=== PATIENT | female | born 1965 | race Caucasian/White ===

== ENCOUNTER 2016-04-15 09:51 | Outpatient (RCR) | payer MEDICAID, OTHER ==
[~2016-04-15 09:51] MED LIST: BIRTH CONTROL PILL; CITA40TA11 PO; NF-ESOM40C PO; PANT40TA2 PO; SUCR1ORA5 PO; SUCR1TAB36 PO
[2016-04-15 10:36] LABS: BASOPHILS % (AUTO) 0 % (0-10); EOSINOPHILS # (AUTO) 0.1 10^3/uL (0.0-0.3); EOSINOPHILS % (AUTO) 2 % (0-10); LYMPHOCYTES # (AUTO) 2.4 X 10^3 (1.0-4.0); LYMPHOCYTES % (AUTO) 36 % (12-44); MEAN CORPUSCULAR HEMOGLOBIN 31 PG (25-34); MEAN CORPUSCULAR HGB CONC 34 G/DL (32-36); MEAN CORPUSCULAR VOLUME 91 FL (80-99); MONOCYTES % (AUTO) 14 % (0-12); NEUTROPHILS # (AUTO) 3.2 X 10^3 (1.8-7.8); NEUTROPHILS % (AUTO) 48 % (42-75); PLATELET COUNT 206 10^3/uL (130-400); RED BLOOD COUNT 5.15 10^6/uL (4.35-5.85); RED CELL DISTRIBUTION WIDTH 13.4 % (10.0-14.5); WHITE BLOOD COUNT 6.7 10^3/uL (4.3-11.0)
[2016-04-15 11:07] LABS: ALANINE AMINOTRANSFERASE 28 U/L (0-55); ALBUMIN 3.7 G/DL (3.2-4.5); ANION GAP 9 MMOL/L (5-14); ASPARTATE AMINO TRANSFERASE 17 U/L (5-34); BILIRUBIN,TOTAL 0.5 MG/DL (0.1-1.0); BLOOD UREA NITROGEN 13 MG/DL (7-18); BUN/CREATININE RATIO 14; CALCIUM 8.9 MG/DL (8.5-10.1); CARBON DIOXIDE 26 MMOL/L (21-32); CHLORIDE 107 MMOL/L (98-107); CREATININE SERUM 0.95 MG/DL (0.60-1.30); GFR ESTIMATED > 60; GLUCOSE 96 MG/DL (70-105); SODIUM 142 MMOL/L (135-145); TOTAL PROTEIN 6.9 G/DL (6.4-8.2)
== END 2016-07-14 | disposition home or self-care (01) ==
LOC: ONC 09:51
PROVIDERS: ATTEND Internal Medicine Hematology & Oncology
DX: D50.9 Iron deficiency anemia, unspecified (principal); K21.9 Gastro-esophageal reflux disease without esophagitis; Z79.899 Other long term (current) drug therapy
CPT/HCPCS: 36415; 80053; 82728; 85025; 99213

== ENCOUNTER → 2016-07-01 | Outpatient (CLI) | payer MEDICAID ==
--- NOTE | 2016-07-01 19:14 | Diagnostic Imaging Report ---
Bilateral screening mammogram The current study was also evaluated with a Computer Aided Detection (CAD) system. INDICATION: Screening. No current complaints stated on the questionnaire. COMPARISON: 10/16/14. FINDINGS: The breasts are composed of scattered fibroglandular densities. Occasional benign-appearing calcifications are seen. Allowing for technique and positional differences, no suspicious change is seen. IMPRESSION: No significant change. ACR BI-RADS Category 2: Benign findings. Result letter will be mailed to the patient. Note: At least 10% of breast cancer is not imaged by mammography. Dictated by: Dictated on workstation # [id number]
== END ==
LOC: RAD 12:05
PROVIDERS: ATTEND Nurse Practitioner Family
DX: Z12.31 Encounter for screening mammogram for malignant neoplasm of breast (principal)
CPT/HCPCS: 77067

== ENCOUNTER 2016-08-13 05:31 | Outpatient (CLI) | payer MEDICAID ==
[~2016-08-13] VITALS: Ht 175.3 cm; Wt 136.1 kg
[2016-08-13] MEDS ORDERED: NF-ESOM40C PO (10:04)
[2016-08-13] MEDS ORDERED: MELO7.5T46 PO (10:04)
[2016-08-13] MEDS ORDERED: SERT50TA9 PO (10:04)
== END 2016-08-13 10:05 ==
LOC: PREOP 05:31
PROVIDERS: ATTEND Surgery
DX: Z01.818 Encounter for other preprocedural examination (principal); K44.9 Diaphragmatic hernia without obstruction or gangrene

== ENCOUNTER 2016-08-17 07:13 | Day surgery (SDC) | payer MEDICAID ==
[~2016-08-17] VITALS: Ht 175.3 cm; Wt 136.1 kg
[~2016-08-17 07:13] MED LIST changes: +MELO7.5T46 PO; +SERT50TA9 PO
[2016-08-17] MEDS ORDERED: NS IV 1000 ML 1,000 ML IV STA (07:21)
[2016-08-17] MEDS ORDERED: HURRICAINE EXT TUBE (BENZOCAINE) XX PRN (07:30)
[2016-08-17] MEDS ORDERED: NALOXONE 0.4 MG/ML 1 ML (NARCAN) VIAL IVP PRN (07:30)
[2016-08-17] MEDS ORDERED: FLUMAZENIL (ROMAZICON) 0.1 MG/ML 5 ML VIAL INJ PRN (07:30)
[2016-08-17 07:43] VITALS: BP 121/65
[2016-08-17] MEDS ORDERED: MIDAZOLAM 2 MG/2 ML (VERSED) VIAL ONE (07:56)
[2016-08-17] MEDS ORDERED: PROPOFOL INJECTION 50 ML IV ONE (07:56)
[2016-08-17] MEDS ORDERED: HURRICAINE EXT TUBE (BENZOCAINE) ONE (08:16)
--- NOTE | 2016-08-17 08:25 | Progress Note-Post Operative ---
Post-Operative Progess Note Surgeon (s)/Utilization Review Rn (s) Surgeon CLARENCE GARY DO Utilization Review Rn: na Pre-Operative Diagnosis history of barretts, heartburn Post-Operative Diagnosis hiatal hernia, ez's Procedure & Operative Findings Date of Procedure 08/17/16 Procedure Performed/Findings egd c biopsies Anesthesia Type per credit specialist Estimated Blood Loss Estimated blood loss (mL): none Specimens/Packing Specimens Removed antrum, distal esophagus CLARENCE GARY DO Aug 17, 2016 8:25 am
[2016-08-17] MEDS ORDERED: PANT40TA2 PO (08:26)
[2016-08-17] MEDS ORDERED: SUCR1TAB36 PO (08:26)
--- NOTE | 2016-08-17 08:27 | Discharge Inst-Simple/Standard ---
Discharge Inst-Standard Discharge Medications New, Converted or Re-Newed RX: Transmitted to Pharmacy Patient Instructions/Follow Up Plan of Care/Instructions/FU: 3 weeks Alessandro Activity as Tolerated: Yes Discharge Diet: Regular Diet (small frequent meals) CLARENCE GARY DO Aug 17, 2016 8:27 am
[2016-08-17 08:45] VITALS: BP 124/72
[2016-08-17 09:15] VITALS: BP 117/69
[2016-08-17 09:30] VITALS: BP 117/69
--- OUTSIDE RECORDS SUMMARY | 2016-08-17 10:16 | XMS REPORT ---
Author Author ENMANUEL SCHILLING [facility] eClinicalWorks Address Unknown Phone Unavailable Care Team Providers Care Curtain Worker Name Role Phone ENMANUEL SCHILLING CP Unavailable Allergies, Adverse Reactions, Alerts Substance Reaction Event Type Sulfamethoxazole Info Not Available Drug Allergy Problems Problem Type Condition Code Onset Dates Condition Status Problem Anemia D64.9 Active Problem Depression F32.9 Active Problem Dysfunctional uterine bleeding N93.8 Active Assessment Blood pressure elevated I10 Active Assessment Leg pain, left M79.605 Active Assessment Depression F32.9 Active Medications Medication Code System Code Instructions Start Date End Date Status Dosage Nexium [facility] [address]-33 40 MG Once a day September 01, 2013 take 1 capsule by Oral route 1 time per day Citalopram Hydrobromide [facility] [address]-12 40 mg Orally Once a day 1 tablet Norgestimate-Eth Estradiol [facility] [address]-98 0.25-35 MG-MCG Orally Once a day Apr 02, 2015 1 tablet Tylenol [facility] [address]-28 500 MG/15ML Orally every 6 hrs 2 tablets Procedures Procedure Coding System Code Date Office Visit, Est Pt., Level 3 CPT-4 56719 June 10, 2015 Vital Signs Date/Time: June 10, 2015 Temperature 99.1 F Weight 284.3 lbs Height 70 in BMI 40.79 Index Blood Pressure Diastolic 96 mmHg Blood Pressure Systolic 130 mmHg Cardiac Monitoring Heart Rate 80 bpm Results No Known Results Summary Purpose eClinicalWorks Submission
--- OUTSIDE RECORDS SUMMARY | 2016-08-17 10:16 | XMS REPORT ---
Author Author ELADIO MARISCAL [facility] eClinicalWorks Address Unknown Phone Unavailable Care Team Providers Care Air Conditioning Installer Supervisor Name Role Phone ELADIO MARISCAL CP Unavailable Allergies No Known Allergies Problems Problem Type Condition ICD-9 Code Onset Dates Condition Status Problem Hordeolum externum 373.11 Active Problem Allergic rhinitis, cause unspecified 477.9 Active Problem Reflux esophagitis 530.11 Active Medications Medication Code System Code Instructions Start Date End Date Status Dosage Flagyl [facility] [address]-60 500 MG Orally 2 times a day Oct 18, 2014 1 tablet Results No Known Results Summary Purpose eClinicalWorks Submission
--- OUTSIDE RECORDS SUMMARY | 2016-08-17 10:16 | XMS REPORT ---
Author Author ENMANUEL SCHILLING [facility] eClinicalWorks Address Unknown Phone Unavailable Care Team Providers Care Escalator Installer Name Role Phone ENMANUEL SCHILLING Unavailable Allergies No Known Allergies Problems Problem Type Condition ICD-9 Code Onset Dates Condition Status Problem Hordeolum externum 373.11 Active Problem Allergic rhinitis, cause unspecified 477.9 Active Problem Reflux esophagitis 530.11 Active Medications Medication Code System Code Instructions Start Date End Date Status Dosage Nexium [facility] [address]-63 40 MG Once a day September 01, 2013 take 1 capsule by Oral route 1 time per day Citalopram Hydrobromide [facility] [address]-52 40 MG Orally Once a day 0.5 tablet Results No Known Results Summary Purpose eClinicalWorks Submission
--- OUTSIDE RECORDS SUMMARY | 2016-08-17 10:16 | XMS REPORT ---
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
--- OUTSIDE RECORDS SUMMARY | 2016-08-17 10:17 | XMS REPORT ---
Author Author ENMANUEL SCHILLING [facility] eClinicalWorks Address Unknown Phone Unavailable Care Team Providers Care Shed Hand Name Role Phone ENMANUEL SCHILLING CP Unavailable Allergies No Known Allergies Problems Problem Type Condition ICD-9 Code Onset Dates Condition Status Problem Hordeolum externum 373.11 Active Problem Allergic rhinitis, cause unspecified 477.9 Active Problem Reflux esophagitis 530.11 Active Medications Medication Code System Code Instructions Start Date End Date Status Dosage Citalopram Hydrobromide [facility] [address]-62 40 MG Orally Once a day 1 tablet Results No Known Results Summary Purpose eClinicalWorks Submission
--- OUTSIDE RECORDS SUMMARY | 2016-08-17 10:17 | XMS REPORT | Continuity of Care Document ---
Author Author [facility] Address Unknown Phone Unavailable Allergies Active Description Code Type Severity Reaction Onset Reported/Identified Relationship to Patient Clinical Status Yes sulfa drug Drug Allergy 10/30/2009 Yes Sulfa (Sulfonamide Antibiotics) [id number] Drug Allergy Unknown N/A 12/17/2014 Medications Problems Date Dx Coded Attending Type Code Diagnosis Diagnosed By 08/28/2007 ENMANUEL SCHILLING MD 558.9 Gastroenteritis Noninfectious 08/28/2007 ENMANUEL SCHILLING MD 729.1 MYALGIA AND MYOSITIS UNSPECIFIED 08/28/2007 ENMANUEL SCHILLING MD 558.9 Gastroenteritis Noninfectious 08/28/2007 ENMANUEL SCHILLING MD 729.1 MYALGIA AND MYOSITIS UNSPECIFIED 08/29/2007 ENMANUEL SCHILLING MD 309.81 AN PTSD 08/29/2007 ENMANUEL SCHILLING MD 309.81 AN PTSD 09/26/2007 ENMANUEL SCHILLING MD 465.9 Upper Respiratory Infection 09/26/2007 ENMANUEL SCHILLING MD 465.9 Upper Respiratory Infection 10/30/2009 ENMANUEL SCHILLING MD 272.4 HYPERLIPIDEMIA 10/30/2009 ENMANUEL SCHILLING MD 311 DEPRESSION SEASONAL PATTERN 10/30/2009 ENMANUEL SCHILLING MD 530.81 ESOPHAGEAL REFLUX 10/30/2009 ENMANUEL SCHILLING MD 272.4 HYPERLIPIDEMIA 10/30/2009 ENMANUEL SCHILLING MD 311 DEPRESSION SEASONAL PATTERN 10/30/2009 ENMANUEL SCHILLING MD 530.81 ESOPHAGEAL REFLUX 07/10/2010 ENMANUEL SCHILLING MD 724.1 PAIN IN THORACIC SPINE 07/10/2010 ENMANUEL SCHILLING MD 724.1 PAIN IN THORACIC SPINE 08/09/2011 ENMANUEL SCHILLING MD 530.11 REFLUX ESOPHAGITIS 08/09/2011 ENMANUEL SCHILLING MD 530.11 REFLUX ESOPHAGITIS 01/21/2012 ENMANUEL SCHILLING MD 373.11 STYE (HORDEOLUM EXTERNUM) 01/21/2012 ENMANUEL SCHILLING MD 477.9 ALLERGIC RHINITIS 01/21/2012 SHAKIR LINDO, ENMANUEL 373.11 STYE (HORDEOLUM EXTERNUM) 01/21/2012 SHAKIR LINDO, ENMANUEL 477.9 ALLERGIC RHINITIS 07/29/2014 SHAKIR LINDO, ENMANUEL Ifrah Ot 285.9 07/29/2014 SHAKIR LINDO, ENMANUEL F Ot 285.9 10/02/2014 SHAKIR LINDO, ENMANUEL F Ot 285.9 10/03/2014 SHAKIR LINDO, ENMANUEL F Ot 285.9 10/03/2014 SHAKIR LINDO, ENMANUEL F Ot 285.9 10/14/2014 SHAKIR LINDO, ENMANUEL F Ot 285.9 10/16/2014 SHAKIR LINDO, ENMANUEL Rg Ot 285.9 10/16/2014 SHAKIR LINDO, ENMANUEL Rg Ot 285.9 11/20/2014 YANE TAPIA Ot 280.9 11/20/2014 YANE TAPIA Ot 530.81 12/17/2014 SHAKIR LINDO, ENMANUEL Rg Ot 285.9 12/17/2014 EMI MERAZ AIRPLANE AND ENGINE INSPECTOR Ot V76.12 12/17/2014 EMI MERAZ APRN Ot 626.2 12/17/2014 CLARENCE GARY DO Ot Z01.818 12/17/2014 EMI MERAZ AIRPLANE AND ENGINE INSPECTOR Ot 626.2 12/17/2014 CLARENCE GARY DO Ot D64.9 ANEMIA, UNSPECIFIED 12/17/2014 CLARENCE GARY DO Ot K20.9 ESOPHAGITIS, UNSPECIFIED 12/17/2014 CLARENCE GARY DO Ot K21.9 GASTRO-ESOPHAGEAL REFLUX DISEASE WITHOUT 12/17/2014 CLARENCE GARY DO Ot K44.9 DIAPHRAGMATIC HERNIA WITHOUT OBSTRUCTION 12/17/2014 CLARENCE GARY DO Ot 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 12/20/2014 EMI MERAZ AIRPLANE AND ENGINE INSPECTOR Ot 626.2 01/31/2015 KVNG CARMICHAEL INFANT NANNY Ot D50.9 01/31/2015 KVNG CARMICHAELP Ot K21.9 01/31/2015 KVNG CARMICHAEL INFANT NANNY Ot Z79.899 01/31/2015 YANE TAPIA Ot D50.9 02/06/2015 SHAKIR LINDO, ENMANUEL Rg Ot 285.9 02/06/2015 EMI MERAZ AIRPLANE AND ENGINE INSPECTOR Ot V76.12 02/06/2015 EMI MERAZ AIRPLANE AND ENGINE INSPECTOR Ot 626.2 02/06/2015 GARY CLARENCE VEGAS Ot Z01.818 02/06/2015 YANE TAPIA Ot D50.9 02/06/2015 KVNG CARMICHAELP Ot D50.9 02/06/2015 KVNG CARMICHAELP Ot K21.9 02/06/2015 KVNG CARMICHAEL INFANT NANNY Ot Z79.899 02/13/2015 YANE TAPIA Ot D50.9 02/24/2015 YANE TAPIA Ot D50.9 IRON DEFICIENCY ANEMIA, UNSPECIFIED 04/03/2015 YANE TAPIA N Ot D50.9 06/10/2015 SHAKIR LINDO, ENMANUEL Rg Ot 285.9 ANEMIA NOS 06/10/2015 EMI MERAZ APRN Ot V76.12 OTH SCREEN MAMMO-MALIGN NEOPLASM OF CRYSTAL 06/10/2015 EMI MERAZ AIRPLANE AND ENGINE INSPECTOR Ot 626.2 EXCESSIVE MENSTRUATION 06/10/2015 GARY CLARENCE VEGAS Ot Z01.818 ENCOUNTER FOR OTHER PREPROCEDURAL EXAMIN 06/10/2015 KVNG CARMICHAELP Ot D50.9 IRON DEFICIENCY ANEMIA, UNSPECIFIED 06/10/2015 KVNG CARMICHAELP Ot K21.9 GASTRO-ESOPHAGEAL REFLUX DISEASE WITHOUT 06/10/2015 KVNG CARMICHAEL INFANT NANNY Ot Z79.899 OTHER HALF-WAY (CURRENT) DRUG THERAPY 06/10/2015 YANE TAPIA Ot D50.9 IRON DEFICIENCY ANEMIA, UNSPECIFIED 06/11/2015 KVNG CARMICHAEL INFANT NANNY Ot D50.9 IRON DEFICIENCY ANEMIA, UNSPECIFIED 06/11/2015 KVNG CARMICHAEL INFANT NANNY Ot K21.9 GASTRO-ESOPHAGEAL REFLUX DISEASE WITHOUT 06/11/2015 KVNG CARMICHAEL INFANT NANNY Ot Z79.899 OTHER TROUBLE LOCATER (CURRENT) DRUG THERAPY 06/25/2015 KVNG CARMICHAELP Ot D50.9 IRON DEFICIENCY ANEMIA, UNSPECIFIED 06/25/2015 KVNG CARMICHAEL INFANT NANNY Ot K21.9 GASTRO-ESOPHAGEAL REFLUX DISEASE WITHOUT 06/25/2015 KVNG CARMICHAEL INFANT NANNY Ot Z79.899 OTHER HALF-WAY (CURRENT) DRUG THERAPY 07/01/2015 YANE TAPIA N Ot D50.9 IRON DEFICIENCY ANEMIA, UNSPECIFIED 07/03/2015 YANE TAPIA Ot D50.9 IRON DEFICIENCY ANEMIA, UNSPECIFIED 07/17/2015 GARY DO, CLARENCE D Ot K22.70 BUI'S ESOPHAGUS WITHOUT DYSPLASIA 07/17/2015 GARY DO, CLARENCE D Ot Z01.818 ENCOUNTER FOR OTHER PREPROCEDURAL EXAMIN 07/18/2015 GARY DO, CLARENCE D Ot K22.70 BUI'S ESOPHAGUS WITHOUT DYSPLASIA 07/18/2015 GARY DO, CLARENCE D Ot Z01.818 ENCOUNTER FOR OTHER PREPROCEDURAL EXAMIN 07/18/2015 GARY DO, CLARENCE D Ot K22.70 BUI'S ESOPHAGUS WITHOUT DYSPLASIA 07/18/2015 GARY DO, CLARENCE D Ot Z01.818 ENCOUNTER FOR OTHER PREPROCEDURAL EXAMIN 07/22/2015 GARY DO, CLARENCE D Ot K22.70 BUI'S ESOPHAGUS WITHOUT DYSPLASIA 07/22/2015 GARY DO, CLARENCE D Ot K44.9 DIAPHRAGMATIC HERNIA WITHOUT OBSTRUCTION 07/23/2015 GARY DO, CLARENCE D Ot K22.70 BUI'S ESOPHAGUS WITHOUT DYSPLASIA 07/23/2015 GARY DO, CLARENCE D Ot K44.9 DIAPHRAGMATIC HERNIA WITHOUT OBSTRUCTION 08/26/2015 KVNG CARMICHAEL INFANT NANNY Ot D50.9 IRON DEFICIENCY ANEMIA, UNSPECIFIED 08/26/2015 KVNG CARMICHAEL INFANT NANNY Ot K21.9 GASTRO-ESOPHAGEAL REFLUX DISEASE WITHOUT 08/26/2015 KVNG CARMICHAEL INFANT NANNY Ot Z79.899 OTHER HALF-WAY (CURRENT) DRUG THERAPY 10/08/2015 KVNG CARMICHAEL INFANT NANNY Ot D50.9 IRON DEFICIENCY ANEMIA, UNSPECIFIED 10/08/2015 KVNG CARMICHAEL INFANT NANNY Ot K21.9 GASTRO-ESOPHAGEAL REFLUX DISEASE WITHOUT 10/08/2015 KVNG CARMICHAEL INFANT NANNY Ot Z79.899 OTHER HALF-WAY (CURRENT) DRUG THERAPY 10/23/2015 KVNG CARMICHAEL INFANT NANNY Ot D50.9 IRON DEFICIENCY ANEMIA, UNSPECIFIED 10/23/2015 KVNG CARMICHAEL INFANT NANNY Ot K21.9 GASTRO-ESOPHAGEAL REFLUX DISEASE WITHOUT 10/23/2015 KVNG CARMICHAEL INFANT NANNY Ot Z79.899 OTHER TROUBLE LOCATER (CURRENT) DRUG THERAPY 11/26/2015 KVNG CARMICHAEL INFANT NANNY Ot D50.9 IRON DEFICIENCY ANEMIA, UNSPECIFIED 11/26/2015 KVNG CARMICHAEL INFANT NANNY Ot K21.9 GASTRO-ESOPHAGEAL REFLUX DISEASE WITHOUT 11/26/2015 KVNG CARMICHAEL INFANT NANNY Ot Z79.899 OTHER HALF-WAY (CURRENT) DRUG THERAPY 05/27/2016 REGINAYANE SEE N Ot D50.9 IRON DEFICIENCY ANEMIA, UNSPECIFIED 05/27/2016 REGINA BOBPRANAY N Ot K21.9 GASTRO-ESOPHAGEAL REFLUX DISEASE WITHOUT 05/27/2016 REGINA BOBAN N Ot Z79.899 OTHER HALF-WAY (CURRENT) DRUG THERAPY 06/01/2016 REGINA BOBPRANAY N Ot D50.9 IRON DEFICIENCY ANEMIA, UNSPECIFIED 06/01/2016 REGINAMARISPRANAY N Ot K21.9 GASTRO-ESOPHAGEAL REFLUX DISEASE WITHOUT 06/01/2016 REGINA BOBAN N Ot Z79.899 OTHER TROUBLE LOCATER (CURRENT) DRUG THERAPY 06/01/2016 SHAKIR LINDO, ENMANUEL Rg Ot 285.9 ANEMIA NOS 06/01/2016 EMI MERAZ AIRPLANE AND ENGINE INSPECTOR Ot V76.12 OTH SCREEN MAMMO-MALIGN NEOPLASM OF CRYSTAL 06/01/2016 EMI MERAZ AIRPLANE AND ENGINE INSPECTOR Ot 626.2 EXCESSIVE MENSTRUATION 06/01/2016 CLARENCE GARY DO Ot Z01.818 ENCOUNTER FOR OTHER PREPROCEDURAL EXAMIN 06/01/2016 KVNG CARMICHAEL INFANT NANNY Ot D50.9 IRON DEFICIENCY ANEMIA, UNSPECIFIED 06/01/2016 KVNG CARMICHAEL INFANT NANNY Ot K21.9 GASTRO-ESOPHAGEAL REFLUX DISEASE WITHOUT 06/01/2016 KVNG CARMICHAEL INFANT NANNY Ot Z79.899 OTHER HALF-WAY (CURRENT) DRUG THERAPY 06/01/2016 KVNG CARMICHAEL INFANT NANNY Ot D50.9 IRON DEFICIENCY ANEMIA, UNSPECIFIED 06/01/2016 KVNG CARMICHAEL INFANT NANNY Ot K21.9 GASTRO-ESOPHAGEAL REFLUX DISEASE WITHOUT 06/01/2016 KVNG CARMICHAEL INFANT NANNY Ot Z79.899 OTHER TROUBLE LOCATER (CURRENT) DRUG THERAPY 06/01/2016 YANE TAPIA N Ot D50.9 IRON DEFICIENCY ANEMIA, UNSPECIFIED 06/01/2016 REGINAYANE SEE N Ot K21.9 GASTRO-ESOPHAGEAL REFLUX DISEASE WITHOUT 06/01/2016 REGINA BOBAN N Ot Z79.899 OTHER HALF-WAY (CURRENT) DRUG THERAPY 06/02/2016 KVNG CARMICHAEL INFANT NANNY Ot D50.9 IRON DEFICIENCY ANEMIA, UNSPECIFIED 06/02/2016 KVNG CARMICHAEL S INFANT NANNY Ot K21.9 GASTRO-ESOPHAGEAL REFLUX DISEASE WITHOUT 06/02/2016 KVNG CARMICHAEL S INFANT NANNY Ot Z79.899 OTHER TROUBLE LOCATER (CURRENT) DRUG THERAPY 06/02/2016 SHAKIR LINDO, ENMANUEL Rg Ot 285.9 ANEMIA NOS 06/02/2016 EMI MERAZ AIRPLANE AND ENGINE INSPECTOR Ot V76.12 OTH SCREEN MAMMO-MALIGN NEOPLASM OF CRYSTAL 06/02/2016 EMI MERAZ AIRPLANE AND ENGINE INSPECTOR Ot 626.2 EXCESSIVE MENSTRUATION 06/02/2016 CLARENCE GARY DO Ot Z01.818 ENCOUNTER FOR OTHER PREPROCEDURAL EXAMIN 06/02/2016 KVNG CARMICHAEL INFANT NANNY Ot D50.9 IRON DEFICIENCY ANEMIA, UNSPECIFIED 06/02/2016 KVNG CARMICHAEL INFANT NANNY Ot K21.9 GASTRO-ESOPHAGEAL REFLUX DISEASE WITHOUT 06/02/2016 KVNG CARMICHAEL S INFANT NANNY Ot Z79.899 OTHER TROUBLE LOCATER (CURRENT) DRUG THERAPY 06/02/2016 KVNG CARMICHAEL INFANT NANNY Ot D50.9 IRON DEFICIENCY ANEMIA, UNSPECIFIED 06/02/2016 KVNG CARMICHAEL INFANT NANNY Ot K21.9 GASTRO-ESOPHAGEAL REFLUX DISEASE WITHOUT 06/02/2016 CARMICHAELKVNG Harper S INFANT NANNY Ot Z79.899 OTHER TROUBLE LOCATER (CURRENT) DRUG THERAPY 06/02/2016 YANE TAPIA N Ot D50.9 IRON DEFICIENCY ANEMIA, UNSPECIFIED 06/02/2016 REGINAYANE SEE N Ot K21.9 GASTRO-ESOPHAGEAL REFLUX DISEASE WITHOUT 06/02/2016 REGINAMARIS SEEAN N Ot Z79.899 OTHER HALF-WAY (CURRENT) DRUG THERAPY 06/02/2016 KVNG CARMICHAEL S INFANT NANNY Ot D50.9 IRON DEFICIENCY ANEMIA, UNSPECIFIED 06/02/2016 KVNG CARMICHAEL S INFANT NANNY Ot K21.9 GASTRO-ESOPHAGEAL REFLUX DISEASE WITHOUT 06/02/2016 BECKY CARMICHAELHNUTER Meredith INFANT NANNY Ot Z79.899 OTHER HALF-WAY (CURRENT) DRUG THERAPY 06/17/2016 KVNG CARMICHAEL INFANT NANNY Ot D50.9 IRON DEFICIENCY ANEMIA, UNSPECIFIED 06/17/2016 KVNG CARMICHAEL INFANT NANNY Ot K21.9 GASTRO-ESOPHAGEAL REFLUX DISEASE WITHOUT 06/17/2016 KVNG CARMICHAEL INFANT NANNY Ot Z79.899 OTHER TROUBLE LOCATER (CURRENT) DRUG THERAPY 06/19/2016 YANE TAPIA Ot D50.9 IRON DEFICIENCY ANEMIA, UNSPECIFIED 06/19/2016 YANE TAPIA Ot K21.9 GASTRO-ESOPHAGEAL REFLUX DISEASE WITHOUT 06/19/2016 YANE TAPIA Ot Z79.899 OTHER TROUBLE LOCATER (CURRENT) DRUG THERAPY 06/25/2016 SHAKIR LINDO, ENMANUEL Rg Ot 285.9 ANEMIA NOS 06/25/2016 EMI MERAZ AIRPLANE AND ENGINE INSPECTOR Ot V76.12 OTH SCREEN MAMMO-MALIGN NEOPLASM OF CRYSTAL 06/25/2016 EMI MERAZ AIRPLANE AND ENGINE INSPECTOR Ot 626.2 EXCESSIVE MENSTRUATION 06/25/2016 CLARENCE GARY DO Ot Z01.818 ENCOUNTER FOR OTHER PREPROCEDURAL EXAMIN 06/25/2016 KVNG CARMICHEAL INFANT NANNY Ot D50.9 IRON DEFICIENCY ANEMIA, UNSPECIFIED 06/25/2016 KVNG CARMICHAEL INFANT NANNY Ot K21.9 GASTRO-ESOPHAGEAL REFLUX DISEASE WITHOUT 06/25/2016 KVNG CARMICHAEL INFANT NANNY Ot Z79.899 OTHER HALF-WAY (CURRENT) DRUG THERAPY 06/25/2016 KVNG CARMICHAEL INFANT NANNY Ot D50.9 IRON DEFICIENCY ANEMIA, UNSPECIFIED 06/25/2016 KVNG CARMICHAEL INFANT NANNY Ot K21.9 GASTRO-ESOPHAGEAL REFLUX DISEASE WITHOUT 06/25/2016 KVNG CARMICHAEL INFANT NANNY Ot Z79.899 OTHER TROUBLE LOCATER (CURRENT) DRUG THERAPY 06/25/2016 YANE TAPIA Ot D50.9 IRON DEFICIENCY ANEMIA, UNSPECIFIED 06/25/2016 YANE TAPIA Ot K21.9 GASTRO-ESOPHAGEAL REFLUX DISEASE WITHOUT 06/25/2016 YANE TAPIA Ot Z79.899 OTHER TROUBLE LOCATER (CURRENT) DRUG THERAPY 06/25/2016 KVNG CARMICHAEL INFANT NANNY Ot D50.9 IRON DEFICIENCY ANEMIA, UNSPECIFIED 06/25/2016 CARMICHAELBECKYHUNTER Meredith INFANT NANNY Ot K21.9 GASTRO-ESOPHAGEAL REFLUX DISEASE WITHOUT 06/25/2016 BECKY CARMICHAELHUNTER S INFANT NANNY Ot Z79.899 OTHER TROUBLE LOCATER (CURRENT) DRUG THERAPY 07/01/2016 ENMANUEL SCHILLING MD Ot 285.9 ANEMIA NOS 07/01/2016 MARIYAYIEMI A AIRPLANE AND ENGINE INSPECTOR Ot V76.12 OTH SCREEN MAMMO-MALIGN NEOPLASM OF CRYSTAL 07/01/2016 YI MERAZIDI Tru AIRPLANE AND ENGINE INSPECTOR Ot 626.2 EXCESSIVE MENSTRUATION 07/01/2016 CLARENCE GARY DO Ot Z01.818 ENCOUNTER FOR OTHER PREPROCEDURAL EXAMIN 07/01/2016 KVNG CARMICHAEL INFANT NANNY Ot D50.9 IRON DEFICIENCY ANEMIA, UNSPECIFIED 07/01/2016 KVNG CARMICHAEL INFANT NANNY Ot K21.9 GASTRO-ESOPHAGEAL REFLUX DISEASE WITHOUT 07/01/2016 KVNG CARMICHAEL S INFANT NANNY Ot Z79.899 OTHER TROUBLE LOCATER (CURRENT) DRUG THERAPY 07/01/2016 KVNG CARMICHAEL INFANT NANNY Ot D50.9 IRON DEFICIENCY ANEMIA, UNSPECIFIED 07/01/2016 KVNG CARMICHAEL S INFANT NANNY Ot K21.9 GASTRO-ESOPHAGEAL REFLUX DISEASE WITHOUT 07/01/2016 CARMICHAELKVNG Harper S INFANT NANNY Ot Z79.899 OTHER HALF-WAY (CURRENT) DRUG THERAPY 07/01/2016 YANE TAPIA Ot D50.9 IRON DEFICIENCY ANEMIA, UNSPECIFIED 07/01/2016 YANE TAPIA N Ot K21.9 GASTRO-ESOPHAGEAL REFLUX DISEASE WITHOUT 07/01/2016 YANE TAPIA N Ot Z79.899 OTHER TROUBLE LOCATER (CURRENT) DRUG THERAPY 07/01/2016 KVNG CARMICHAEL INFANT NANNY Ot D50.9 IRON DEFICIENCY ANEMIA, UNSPECIFIED 07/01/2016 KVNG CARMICHAEL S INFANT NANNY Ot K21.9 GASTRO-ESOPHAGEAL REFLUX DISEASE WITHOUT 07/01/2016 CARMICHAELKVNG Harper S INFANT NANNY Ot Z79.899 OTHER HALF-WAY (CURRENT) DRUG THERAPY 07/13/2016 AKILAH PINON INFANT NANNY Ot Z12.31 ENCNTR SCREEN MAMMOGRAM FOR MALIGNANT NE 07/14/2016 YANE TAPIA Zuly Ot D50.9 IRON DEFICIENCY ANEMIA, UNSPECIFIED 07/14/2016 YANE TAPIA Zuly Ot K21.9 GASTRO-ESOPHAGEAL REFLUX DISEASE WITHOUT 07/14/2016 YANE TAPIA Zuly Ot Z79.899 OTHER TROUBLE LOCATER (CURRENT) DRUG THERAPY Procedures Code Description [place] [address] ROUTINE VENIPUNCTURE 01/26/2013 [id number] CMP 01/26/2013 [id number] GFR CALC (RESULT ONLY) 01/26/2013 Results Encounters ACCT No. Visit Date/Time Discharge Status Pt. Type Provider Facility Loc./Unit Complaint [id number] 01/26/2013 09:40:00 01/26/2013 23: 59:59 [facility] Outpatient ENMANUEL SCHILLING MD [id number] 01/21/2012 11:00:00 01/21/2012 23: 59:59 [facility] Outpatient ENMANUEL SCHILLING MD
--- OUTSIDE RECORDS SUMMARY | 2016-08-17 10:17 | XMS REPORT ---
Author Author ENMANUEL SCHILLING [facility] Address [address] [place] [address] Care Team Providers Care Forensic Dna Analyst Name Role Phone ENMANUEL SCHILLING Unavailable PROBLEMS Type Condition ICD9-CM Code [id number] Code Onset Dates Condition Status SNOMED Code Problem Fibromyalgia M79.7 Active 132170854 Problem Gastroesophageal reflux disease without esophagitis K21.9 Active 238104618 Problem Depression F32.9 Active 39735262 Assessment Fibromyalgia M79.7 Dec, Active 081573332 Problem Dysfunctional uterine bleeding N93.8 Active 38228818 Problem Anemia D64.9 Active 128868365 ALLERGIES Substance Reaction Event Type Date Status Sulfamethoxazole Unknown Drug Allergy Dec, Active SOCIAL HISTORY No smoking Hx information available PLAN OF CARE VITAL SIGNS Height 70 in 2016-01-09 Weight 298.5 lbs 2016-01-09 Heart Rate 68 bpm 2016-01-09 Respiratory Rate 18 2016-01-09 BMI 42.83 kg/m2 2016-01-09 Blood pressure systolic 132 mmHg 2016-01-09 Blood pressure diastolic 98 mmHg 2016-01-09 MEDICATIONS Medication Instructions Dosage Frequency Start Date End Date Duration Status Nexium 40 mg Orally, must be seen for more refills Once a day ONE CAPSULE 24h Active Neurontin 300 MG Orally Three times a day 1 capsule 8h Dec, 30 day(s) Active Tramadol HCl 50 mg Orally 3 times a day, 1 tablet as needed Dec, Active RESULTS No Results PROCEDURES Procedure Date Ordered Related Diagnosis Body Site Office Visit, Est Pt., Level 3 Jan 09, 2016 IMMUNIZATIONS No Known Immunizations
--- OUTSIDE RECORDS SUMMARY | 2016-08-17 10:17 | XMS REPORT ---
Author Author EMI MERAZ Organization [employer] Address Unknown Phone Unavailable Care Team Providers Care Dispatcher Chief Coal Slurry Name Role Phone EMI MERAZ CP Unavailable Allergies, Adverse Reactions, Alerts Substance Reaction Event Type Sulfamethoxazole Info Not Available Drug Allergy Problems Problem Type Condition ICD-9 Code Onset Dates Condition Status Problem Hordeolum externum 373.11 Active Problem Allergic rhinitis, cause unspecified 477.9 Active Problem Reflux esophagitis 530.11 Active Assessment Breast cancer screening V76.10 Active Assessment Menorrhagia 626.2 Active Assessment Routine gynecological examination V72.31 Active Assessment Pap test, as part of routine gynecological examination V76.2 Active Medications Medication Code System Code Instructions Start Date End Date Status Dosage Polysaccharide Iron Complex [facility] [address]-07 150 MG Orally Once a day Oct 03, 2014 1 capsule Citalopram Hydrobromide [facility] [address]-43 40 MG Orally Once a day 0.5 tablet Nexium [facility] [address]-74 40 mg September 01, 2013 take 1 capsule by Oral route 1 time per day Ortho Micronor [facility] [address]-23 0.35 MG Orally Once a day Oct 10, 2014 1 tablet Procedures Procedure Coding System Code Date Preventive Care Est Pt. Age 40-64 CPT-4 95760 Oct 10, 2014 SPECIMEN HANDLING CPT-4 62933 Oct 10, 2014 Vital Signs Date/Time: Oct 10, 2014 Temperature 98.4 F Weight 285.0 lbs Height 70 in BMI 40.89 Index Blood Pressure Diastolic 78 mmHg Blood Pressure Systolic 108 mmHg Cardiac Monitoring Heart Rate 102 bpm Results Name Result Date Reference Range Unit Abnormality Flag PDF Report PAP TEST W/ HPV REGARDLESS Summary Purpose eClinicalWorks Submission
--- OUTSIDE RECORDS SUMMARY | 2016-08-17 10:17 | XMS REPORT ---
Author Author ELADIO MARISCAL [facility] eClinicalWorks Address Unknown Phone Unavailable Care Team Providers Care Evidence Specialist Name Role Phone ELADIO MARISCAL CP Unavailable Allergies No Known Allergies Problems Problem Type Condition Code Onset Dates Condition Status Problem Anemia D64.9 Active Problem Depression F32.9 Active Problem Dysfunctional uterine bleeding N93.8 Active Medications No Known Medications Results No Known Results Summary Purpose eClinicalWorks Submission
--- OUTSIDE RECORDS SUMMARY | 2016-08-17 10:17 | XMS REPORT ---
Author Author ENMANUEL SCHILLING [facility] eClinicalWorks Address Unknown Phone Unavailable Care Team Providers Care Hat Forming Machine Feeder Name Role Phone ENMANUEL SCHILLING CP Unavailable Allergies, Adverse Reactions, Alerts Substance Reaction Event Type Sulfamethoxazole Info Not Available Drug Allergy Problems Problem Type Condition ICD-9 Code Onset Dates Condition Status Problem Hordeolum externum 373.11 Active Problem Allergic rhinitis, cause unspecified 477.9 Active Problem Reflux esophagitis 530.11 Active Assessment Anemia 285.9 Active Medications Medication Code System Code Instructions Start Date End Date Status Dosage Citalopram Hydrobromide [facility] [address]-78 40 MG Orally Once a day 0.5 tablet Nexium [facility] [address]-13 40 mg September 01, 2013 take 1 capsule by Oral route 1 time per day Procedures Procedure Coding System Code Date VENIPUNCT, ROUTINE* CPT-4 97364 Oct 01, 2014 COMPLETE CBC W/AUTO DIFF WBC CPT-4 48819 Oct 01, 2014 Vital Signs Date/Time: Oct 01, 2014 Temperature 98.0 F Weight 278 lbs Height 70 in BMI 39.88 Index Blood Pressure Diastolic 78 mmHg Blood Pressure Systolic 110 mmHg Cardiac Monitoring Heart Rate 80 bpm Results No Known Results Summary Purpose eClinicalWorks Submission
--- OUTSIDE RECORDS SUMMARY | 2016-08-17 10:18 | XMS REPORT ---
Author Author TALA LOMELI [facility] eClinicalWorks Address Unknown Phone Unavailable Care Team Providers Care Coding Advisor Name Role Phone TALA LOMELI Unavailable Allergies No Known Allergies Problems Problem Type Condition Code Onset Dates Condition Status Problem Hordeolum externum 373.11 Active Problem Allergic rhinitis, cause unspecified 477.9 Active Problem Reflux esophagitis 530.11 Active Medications Medication Code System Code Instructions Start Date End Date Status Dosage Ortho Micronor [facility] [address]-00 0.35 MG Orally Once a day Oct 10, 2014 1 tablet Results No Known Results Summary Purpose eClinicalWorks Submission
--- OUTSIDE RECORDS SUMMARY | 2016-08-17 10:18 | XMS REPORT ---
Author Author TALA LOMELI [facility] eClinicalWorks Address Unknown Phone Unavailable Care Team Providers Care Saw Straightener Name Role Phone TALA LOMELI CP Unavailable Allergies, Adverse Reactions, Alerts Substance Reaction Event Type Sulfamethoxazole Info Not Available Drug Allergy Problems Problem Type Condition ICD-9 Code Onset Dates Condition Status Problem Hordeolum externum 373.11 Active Problem Allergic rhinitis, cause unspecified 477.9 Active Problem Reflux esophagitis 530.11 Active Assessment Unspecified disorder of menstruation and other abnormal bleeding from female genital tract 626.9 Active Medications Medication Code System Code Instructions Start Date End Date Status Dosage Nexium [facility] [address]-91 40 MG Once a day September 01, 2013 take 1 capsule by Oral route 1 time per day Citalopram Hydrobromide [facility] [address]-68 40 MG Orally Once a day 1 tablet Polysaccharide Iron Complex [facility] [address]-19 150 MG Orally Once a day Oct 03, 2014 1 capsule Procedures Procedure Coding System Code Date URINE TEST CPT-4 56272 Nov 07, 2014 BIOPSY OF UTERUS LINING CPT-4 05811 Nov 07, 2014 Vital Signs Date/Time: Nov 07, 2014 Temperature 98.4 F Weight 281.1 lbs Height 70 in BMI 40.33 Index Blood Pressure Diastolic 76 mmHg Blood Pressure Systolic 110 mmHg Cardiac Monitoring Heart Rate 84 bpm Results Name Result Date Reference Range Unit Abnormality Flag TEST, URINE (IN HOUSE) ----RESULTS negative [id number] Summary Purpose eClinicalWorks Submission
--- OUTSIDE RECORDS SUMMARY | 2016-08-17 10:18 | XMS REPORT ---
Author Author ENMANUEL SCHILLING [facility] eClinicalWorks Address Unknown Phone Unavailable Care Team Providers Care Policy Director Name Role Phone ENMANUEL SCHILLING CP Unavailable Allergies No Known Allergies Problems Problem Type Condition Code Onset Dates Condition Status Problem Hordeolum externum 373.11 Active Problem Allergic rhinitis, cause unspecified 477.9 Active Problem Reflux esophagitis 530.11 Active Medications Medication Code System Code Instructions Start Date End Date Status Dosage Protonix [facility] [address]-35 40 MG Orally 2 times a day Dec 17, 2014 1 tablet Carafate [facility] [address]-05 1 GM/10ML Orally every 6 hours Dec 17, 2014 Mar 17, 2015 10 ml Results No Known Results Summary Purpose eClinicalWorks Submission
--- NOTE | 2016-08-17 14:35 | Operative Report ---
Operative Report Date of Procedure/Surgery Aug 17, 2016 Surgeon (s) CLARENCE GARY DO Hand Upper And Bottom Lacer (s): na Post-Operative Diagnosis hiatal hernia, ez's Procedure Performed egd c biopsies Description of Procedure Anesthesia Type: MAC Estimated blood loss (mL): none Specimen(s) collected/removed antrum, distal esophagus Description of the Procedure COMPLICATIONS: None. INDICATIONS: The patient is a 51 female who presented with history of hiatal hernia and modi's. She was recommended to have EGD. She understands the risks and benefits and wished to proceed with procedure. Consent was signed and on the chart. The patient was taken to the endoscopy suite, placed in left lateral recumbent position. Timeout was performed. Scope was inserted into the mouth, down the esophagus, stomach and into the duodenum without difficulty. There are no polyps, masses or ulcerations within the duodenum. The scope was slowly retracted back into the stomach which had slight erythematous changes. Biopsy of the antrum at this area was obtained. The scope was then slowly retracted back and retroflexed noting a small hiatal hernia. Scope was returned to its normal position, slowly withdrawn back into the distal esophagus, there were some short modi changes at the GE junction. Biopsies were obtained. Scope was slowly retracted back noting no other pathology. RECOMMENDATIONS: Patient will follow up in the office to discuss pathology results 3 weeks. Patient to be on Protonix and carafate. See how symptoms are doing at follow up visit. Any changes in condition be evaluated at that time. Findings of the Procedure see above Allergies and Home Medications Allergies Coded Allergies: Sulfa (Sulfonamide Antibiotics) (Verified Allergy, Unknown, 11/19/14) Home Medications Pantoprazole Sodium 40 Mg Tablet., 40 MG PO DAILY, #30 Ref 4 Prescribed by: CLARENCE GARY on 08/17/16825 Sertraline HCl 50 Mg Tablet, 50 MG PO DAILY, (Reported) Sucralfate 1 Gm Tablet, 1 GM PO Q6H, #120 Prescribed by: CLARENCE GARY on 08/17/16825 CLARENCE GARY DO Aug 17, 2016 14:35
== END 2016-08-17 09:30 | disposition home or self-care (01) ==
LOC: ENDO 07:13
PROVIDERS: ATTEND Surgery
DX: K22.70 Barrett's esophagus without dysplasia (principal); K44.9 Diaphragmatic hernia without obstruction or gangrene; E66.01 Morbid (severe) obesity due to excess calories; Z68.42 Body mass index [BMI] 45.0-49.9, adult; F17.210 Nicotine dependence, cigarettes, uncomplicated; F41.9 Anxiety disorder, unspecified; M79.7 Fibromyalgia; Z79.899 Other long term (current) drug therapy

== ENCOUNTER 2016-12-07 10:15 | Outpatient (RCR) | payer MEDICAID | END 2017-01-12 10:50 | disposition home or self-care (01) | PROVIDERS: ATTEND Nurse Practitioner | DX: M54.12 Radiculopathy, cervical region (principal) ==

== ENCOUNTER 2018-11-29 14:53 | Outpatient (RCR) | payer OTHER | END 2018-11-29 15:53 | disposition home or self-care (01) | PROVIDERS: ATTEND Surgery | DX: Z02.71 Encounter for disability determination (principal) ==

== ENCOUNTER → 2018-11-29 | Outpatient (CLI) | payer OTHER ==
--- NOTE | 2018-11-29 14:50 | Diagnostic Imaging Report ---
INDICATION: Back pain. TIME OF EXAM: 02:40 p.m. FINDINGS: Three views of the lumbar spine were obtained. Curvature and alignment is within normal limits. Vertebral body heights are well-maintained. No acute compression fracture is detected. There is degenerative disc disease at the L5-S1 level with disc space narrowing noted. Remaining lumbar disc spaces are well-maintained. IMPRESSION: L5-S1 degenerative disc disease. No acute bony abnormality is detected. Dictated by: Dictated on workstation # [id number]
== END ==
LOC: RAD 13:10
PROVIDERS: ATTEND Surgery
DX: Z02.71 Encounter for disability determination (principal); M51.37 Other intervertebral disc degeneration, lumbosacral region
CPT/HCPCS: 72100

== ENCOUNTER → 2020-05-06 | Outpatient (CLI) | payer MEDICAID ==
[~2020-05-06] MED LIST changes: +SERT-413 PO; -SERT50TA9 PO
--- NOTE | 2020-05-07 06:49 | Diagnostic Imaging Report ---
INDICATION: Routine screening. Comparison is made with prior mammogram from 07/01/2016 and 10/16/2014. 2-D and 3-D bilateral screening mammography was performed with CAD. Scattered fibroglandular densities are identified bilaterally. The parenchymal pattern is stable. No mass or malignant appearing microcalcifications are seen. There are benign calcifications present. Axillae are unremarkable. IMPRESSION: BI-RADS Category 2 No mammographic features suspicious for malignancy are identified. ACR BI-RADS Category 2: Benign findings. Result letter will be mailed to the patient. Note: At least 10% of breast cancer is not imaged by mammography. Dictated by: Dictated on workstation # [id number]
== END ==
LOC: RAD 13:47
PROVIDERS: ATTEND Internal Medicine
DX: Z12.31 Encounter for screening mammogram for malignant neoplasm of breast (principal)
CPT/HCPCS: 77063; 77067

== ENCOUNTER 2020-11-28 05:30 | Outpatient (RCR) | payer MEDICAID ==
[~2020-11-28] VITALS: Ht 175.3 cm; Wt 147.4 kg
[~2020-11-28 05:30] MED LIST changes: +PHEN15CA PO; +VORT20TA PO
== END 2020-12-01 08:48 | disposition home or self-care (01) ==
LOC: PREOP 05:30
PROVIDERS: ATTEND Surgery
DX: Z01.812 Encounter for preprocedural laboratory examination (principal); Z20.822 Contact with and (suspected) exposure to COVID-19; Z87.19 Personal history of other diseases of the digestive system
CPT/HCPCS: 87635

== ENCOUNTER 2020-12-02 11:58 | Day surgery (SDC) | payer MEDICAID ==
[~2020-12-02] VITALS: Ht 175.3 cm; Wt 147.4 kg
[2020-12-02] MEDS ORDERED: LACTATED RINGERS 1,000 ML IV ONE (12:16)
[2020-12-02] MEDS ORDERED: LACTATED RINGERS 1,000 ML IV STA (12:26)
[2020-12-02] MEDS ORDERED: HURRICAINE EXT TUBE (BENZOCAINE) XX PRN (12:30)
[2020-12-02 12:36] VITALS: BP 123/91
--- NOTE | 2020-12-02 14:29 | Progress Note-Pre Operative ---
Pre-Operative Progress Note H&P Reviewed The H&P was reviewed, patient examined and no changes noted. Date Seen by Provider: Dec 02, 2020 Time Seen by Provider: 14:28 Date H&P Reviewed: Dec 02, 2020 Time H&P Reviewed: 14:28 Pre-Operative Diagnosis: hx modi's CLARENCE GARY DO Dec 02, 2020 14:29
[2020-12-02] MEDS ORDERED: proPOfol 200 MG/20 ML (DIPRIVAN) VIAL IV ONE (15:26)
[2020-12-02] MEDS ORDERED: MIDAZOLAM 2 MG/2 ML (VERSED) VIAL ONE (15:26)
[2020-12-02 15:45] VITALS: BP 150/67
[2020-12-02 15:50] VITALS: BP 150/67
--- NOTE | 2020-12-02 16:10 | Discharge Inst-Simple/Standard ---
Discharge Inst-Standard Patient Instructions/Follow Up Plan of Care/Instructions/FU: 2 weeks Alessandro Activity as Tolerated: Yes Discharge Diet: Regular Diet CLARENCE GARY DO Dec 02, 2020 16:10
[2020-12-02 16:11] VITALS: BP 149/72
--- NOTE | 2020-12-02 16:33 | Anesthesia-General Post-Op ---
MAC Patient Condition Mental Status/LOC: Same as Preop Cardiovascular: Satisfactory Nausea/Vomiting: Absent Respiratory: Satisfactory Pain: Controlled Complications: Absent Post Op Complications Complications None Follow Up Care/Instructions Patient Instructions None needed. Anesthesiology Discharge Order Discharge Order Patient was seen after the procedure and she was doing well, no complaints, stable vital signs, no apparent adverse anesthesia problems. CLAUDINE TYLER DO Dec 02, 2020 16:33
--- NOTE | 2020-12-03 01:43 | OPERATIVE REPORT ---
DATE OF SERVICE: 12/02/2020 PREOPERATIVE DIAGNOSIS: History of Frost's. POSTOPERATIVE DIAGNOSES: Hiatal hernia, reflux esophagitis and mucosal changes of the duodenum. PROCEDURE: EGD with biopsy. SURGEON: Clarence Francois DO ANESTHESIA: Per MDA. ESTIMATED BLOOD LOSS: None. COMPLICATIONS: None. INDICATIONS: The patient is a 55-year-old female needing screening EGD for history of Frost's. She understands risks and benefits of procedure and wished to proceed. Consent was signed in the chart. DESCRIPTION OF PROCEDURE: The patient was taken to endoscopy suite, placed in left lateral recumbent position. Timeout was performed. Scope was inserted in mouth, down the esophagus, stomach and into the duodenum without difficulty. There were no polyps, masses or ulcerations within the second portion of the duodenum. In the first portion, some mucosal changes were present. Biopsy was obtained. Scope was slowly retracted back into the stomach where it was further insufflated. There were no polyps, masses or ulcerations in the stomach. Scope was retroflexed noting hiatal hernia, no other pathology. Scope was returned to its normal position, slowly withdrawn to distal esophagus, some reflux esophagitis present. Four-quadrant biopsies were obtained from the GE junction. Scope was then slowly retracted back to completely remove noting no other pathology. The patient tolerated procedure well without any complications. She was taken to recovery room in stable condition. RECOMMENDATIONS: The patient will need repeat EGD in 2 to 3 years. Any issues before that be seen at that time. Job ID: [id number] DocumentID: [id number] Dictated Date: 12/02/2020 16:15:48 Observer [employer] Date: 12/03/2020 01:42:50 Dictated By: CLARENCE FRANCOIS DO
== END 2020-12-02 16:30 | disposition home or self-care (01) ==
LOC: ENDO 11:58
PROVIDERS: ATTEND Surgery
DX: K21.00 Gastro-esophageal reflux disease with esophagitis, without bleeding (principal); K22.70 Barrett's esophagus without dysplasia; K44.9 Diaphragmatic hernia without obstruction or gangrene; F41.9 Anxiety disorder, unspecified; F32.A Depression, unspecified; K31.89 Other diseases of stomach and duodenum; M79.7 Fibromyalgia; Z88.5 Allergy status to narcotic agent; Z88.6 Allergy status to analgesic agent; Z88.2 Allergy status to sulfonamides; Z79.899 Other long term (current) drug therapy
CPT/HCPCS: 84703